=== PATIENT | female | born 1940 | race Hispanic/Latino ===

== ENCOUNTER → 2017-09-19 | Outpatient (CLI) | payer OTHER, MEDICARE ==
[~2017-09-19] MED LIST: ALEN70TA47 PO; ATOR40TA71 PO; BEE550CA PO; BIMA12.5OS OU; CARV3.12 PO; CETI10TA57 PO; CYCL30DR OU; DICY10CA13 PO; ESCI10TA54 PO; ESOM20CA39 PO; HYDR12.54 PO; LINA145C PO; LISI-613 PO; MIRA25TA PO; RIVA20TA PO; TRAZ-144 PO
== END | disposition home or self-care (01) ==
LOC: OIH 13:48
PROVIDERS: ATTEND Internal Medicine
DX: S93.402A Sprain of unspecified ligament of left ankle, initial encounter (principal); M19.072 Primary osteoarthritis, left ankle and foot; X58.XXXA Exposure to other specified factors, initial encounter; Y93.89 Activity, other specified; Y92.89 Other specified places as the place of occurrence of the external cause; Y99.8 Other external cause status
CPT/HCPCS: 73600

== ENCOUNTER 2017-10-23 12:12 | Emergency (ER) | payer OTHER, MEDICARE ==
[2017-10-23 12:50] LABS: APPEARANCE,URINE Clear (CLEAR); BILIRUBIN,URINE Negative (NEGATIVE); COLOR,URINE Yellow (YELLOW); GLUCOSE, URINE (UA) Negative (NEGATIVE); KETONES,URINE Negative (NEGATIVE); LEUKOCYTE ESTERASE ,URINE Negative (NEGATIVE); NITRATE,URINE Negative (NEGATIVE); OCCULT BLOOD,URINE Negative (NEGATIVE); PROTEIN,URINE Negative (NEGATIVE)
[2017-10-23 12:51] LABS: BASOPHILS % (AUTO) 0.5 % (0.0-5.0); LYMPHOCYTES % (AUTO) 28.5 % (21.0-51.0); MEAN CORPUSCULAR HEMOGLOBIN 29.3 pg (27.0-33.0); MEAN CORPUSCULAR HGB CONC 34.1 g/dL (32.0-36.0); MEAN CORPUSCULAR VOLUME 85.9 fL (79-99); MONOCYTES % (AUTO) 5.5 % (3.0-13.0); NEUTROPHILS % (AUTO) 64.5 % (40.0-77.0); PLATELET COUNT (AUTO) 212 K/uL (130-400); RED BLOOD CELL COUNT(AUTO) 4.65 MIL/uL (4.00-5.50); RED CELL DISTRIBUTION WIDTH 15.5 % (11.0-15.5); WHITE BLOOD COUNT (AUTO) 8.6 K/uL (4.8-10.8)
[2017-10-23 13:01] LABS: CREATININE 0.9 mg/dL (0.5-1.5); POTASSIUM 3.9 mmol/L (3.5-5.1)
[2017-10-23 13:03] LABS: INR 1.67 (0.85-1.15); PARTIAL THROMBOPLASTIN TIME 38.3 SEC (26.3-35.5); PROTHROMBIN TIME 17.4 SEC (9.6-11.6)
[2017-10-23 13:05] LABS: ALBUMIN 3.6 g/dL (3.5-5.0); BILIRUBIN,TOTAL 1.1 mg/dL (0.2-1.0); TOTAL PROTEIN, SERUM 7.7 g/dL (6.0-8.3)
[2017-10-23 13:18] LABS: RAPID GROUP A STREP NEGATIVE (NEGATIVE)
[2017-10-23 13:30] LABS: B-TYPE NATRIURETIC PEPTIDE 105 pg/mL (0-100)
[2017-10-23] MEDS ORDERED: METHYLPREDNISOLONE SOD SUCC 40MG/ML 1ML ONE (15:05)
[2017-10-23] MEDS ORDERED: DEXAMETHASONE SOD PHOSPHATE 4 MG/ML 1ML VIAL ONE (15:05)
== END 2017-10-23 15:27 | disposition home or self-care (01) ==
LOC: EDH 12:12
DX: B34.9 Viral infection, unspecified (principal); J10.1 Influenza due to other identified influenza virus with other respiratory manifestations; I25.10 Atherosclerotic heart disease of native coronary artery without angina pectoris; E78.5 Hyperlipidemia, unspecified; I10 Essential (primary) hypertension; Z88.5 Allergy status to narcotic agent; Z90.49 Acquired absence of other specified parts of digestive tract; Z90.710 Acquired absence of both cervix and uterus; Z98.890 Other specified postprocedural states
CPT/HCPCS: 36415; 71045; 80053; 81003; 83690; 83880; 84484 ×2; 85025; 85610; 85730; 87804 ×2; 87880; 93005; 96372; 96374; 99285; J1100; J2920